=== PATIENT | female | born 1990 | race Caucasian/White ===

== ENCOUNTER 2018-09-01 18:36 | Emergency (ER) | payer MEDICAID ==
[~2018-09-01] VITALS: Ht 165.1 cm; Wt 97.1 kg
[~2018-09-01 18:36] MED LIST: ACEBUTCAFT PO; ACET500 PO; AMOCLA875 PO; AZIT250 PO; BUSP5 PO; Bactrim Ds Tab1 EACH PO; CEPH500 PO; CODACE30 PO; CRUTCH4 USE; Cleocin HCl300 MG PO; DIPATR PO; DIVA500EC; EXCEDRIN MIGRAINE; GABA300 PO; HYDACE5 PO; IBUP800 PO; MULVITMINE PO; NAPR500 PO; NORT10 PO; OMEP20ER PO; OXYACE5T PO; PENVK500 PO; PRAZ2 PO; PROACE100 PO; PROM25 PO; Phenergan25 M1 PO; Prednisone20 MG PO; RXCODACET PO; RXHYDACE PO; RXIBUP800 PO; RXPROACE PO; TRAM50 PO; Ultram50 MG PO; [UNRECOGNIZED DRUG - REMARK]
[2018-09-01] MEDS ORDERED: Ultram50 MG PO (19:59)
== END 2018-09-01 20:12 | disposition home or self-care (01) ==
LOC: ER 18:36
DX: S01.81XA Laceration without foreign body of other part of head, initial encounter (principal); X58.XXXA Exposure to other specified factors, initial encounter; Z91.048 Other nonmedicinal substance allergy status; Z88.8 Allergy status to other drugs, medicaments and biological substances; F17.200 Nicotine dependence, unspecified, uncomplicated
CPT/HCPCS: 12011; 90471; 90714; 99283

== ENCOUNTER 2019-08-17 19:22 | Emergency (ER) | payer OTHER ==
[~2019-08-17] VITALS: Ht 167.6 cm; Wt 104.3 kg
[2019-08-17] MEDS ORDERED: Crutch1 EACH MISC (19:56)
[2019-08-17] MEDS ORDERED: Sudogest60 MG PO (19:57)
== END 2019-08-17 20:08 | disposition home or self-care (01) ==
LOC: ER 19:22
DX: S89.92XA Unspecified injury of left lower leg, initial encounter (principal); R22.0 Localized swelling, mass and lump, head; X50.9XXA Other and unspecified overexertion or strenuous movements or postures, initial encounter; Z88.8 Allergy status to other drugs, medicaments and biological substances; Z91.048 Other nonmedicinal substance allergy status; F17.200 Nicotine dependence, unspecified, uncomplicated
CPT/HCPCS: 29505; 99283-25

== ENCOUNTER 2020-10-08 21:01 | Emergency (ER) | payer OTHER ==
[~2020-10-08] VITALS: Ht 165.1 cm; Wt 104.3 kg
[~2020-10-08 21:01] MED LIST changes: +Crutch1 EACH MISC; +Sudogest60 MG PO
== END 2020-10-08 23:35 | disposition home or self-care (01) ==
LOC: ER 21:01
DX: M54.5 Low back pain (principal); F17.210 Nicotine dependence, cigarettes, uncomplicated; Z88.6 Allergy status to analgesic agent; Z91.09 Other allergy status, other than to drugs and biological substances; W10.9XXA Fall (on) (from) unspecified stairs and steps, initial encounter; Y93.89 Activity, other specified
CPT/HCPCS: 72100; 99283-25; A9270; A9270-GY

== ENCOUNTER 2025-04-01 02:44 | Emergency (ER) | payer OTHER ==
[~2025-04-01] VITALS: Ht 167.6 cm; Wt 117.9 kg
[~2025-04-01 02:44] MED LIST changes: +METO25 PO; +ZEBUTAL 50-3251 EAC1 PO
[2025-04-01 03:45] VITALS: BP 173/103
== END 2025-04-01 03:57 | disposition left against medical advice (07) ==
LOC: ER 02:44
DX: R07.9 Chest pain, unspecified (principal); R06.02 Shortness of breath; Z53.21 Procedure and treatment not carried out due to patient leaving prior to being seen by health care provider
CPT/HCPCS: 93005; 93010